=== PATIENT | male | born 1990 | race Caucasian/White ===

== ENCOUNTER → 2018-07-23 13:30 | Outpatient (REF) | payer BC, SELFPAY ==
[2018-07-25 09:40] LABS: Acrosom Defect 27.5 %; Appearance Normal; Container Type 50 mL Conical; Double Forms 3.5 %; Germ Cells/mL 1.03 x10(6) (<4.00); Grade 2.5 (>=2.5); Motile/Ejaculate 8.5 x10(6) (>=9.0); Motile/mL 6.5 x10(6) (>=6.0); Motility 41 % (>=40); Semen Volume 1.3 mL (>=1.5); Sperm/mL 15.9 x10(6) (>=15.0); Study Type Semen; WBC/mL 0.24 x10(6) (<1.00)
== END ==
LOC: NCHCN 13:30
PROVIDERS: PCP Family Medicine; Visit Provider Family Medicine
DX: Z31.69 Encounter for other general counseling and advice on procreation (principal)
CPT/HCPCS: 89240; 89310

== ENCOUNTER 2019-12-08 18:04 | Outpatient (REF) | payer BC, SELFPAY ==
[2019-12-08 18:58] LABS: BUN 11 mg/dL (7-18); CREATININE 0.87 mg/dL (0.70-1.30); Calcium 9.4 mg/dL (8.5-10.1); Chloride 104 mmol/L (98-107); Glucose 109 mg/dL (74-106); Sodium 145 mmol/L (136-145)
== END 2019-12-08 18:24 ==
LOC: NCHCN 18:04
PROVIDERS: PCP Family Medicine; Visit Provider Family Medicine
DX: I10 Essential (primary) hypertension (principal)
CPT/HCPCS: 80048

== ENCOUNTER 2020-02-17 02:13 | Outpatient (CLI) | payer BC, SELFPAY ==
--- NOTE | 2020-02-17 07:32 | DI.US_ITS ---
APPROVED REPORT EXAM: Comprehensive 2D, Doppler, and color-flow Echocardiogram Patient Location: Out-Patient Bench Inspector: Petra Diaz RDCS (AE) Indications: Abnormal EKG LVH Conclusion Left Ventricle : The left ventricle is normal size. The left ventricular systolic function is normal. The left ventricular ejection fraction is within the normal range. There is normal left ventricular wall thickness. There is normal LV segmental wall motion. The left ventricular diastolic function is normal. LVEF is 65-70%. Right Ventricle : The right ventricle is normal size. The right ventricular systolic function is norm al. Atria : The left atrium size is normal. The right atrium size is normal. Valves: There are no hemodynamically significant valvular lesions Great Vessels : IVC is normal in size and collapses >50% with inspiration. The RVSP is 21 mmHg. There is no prior echocardiogram available for comparison. Wall motion Left Ventricle The left ventricle is normal size. The left ventricular systolic function is normal. The left ventric ular ejection fraction is within the normal range. There is normal left ventricular wall thickness. T here is normal LV segmental wall motion. The left ventricular diastolic function is normal. There is no ventricular septal defect visualized. LVEF is 65-70%. Right Ventricle The right ventricle is normal size. The right ventricular systolic function is normal. Atria The left atrium size is normal. The right atrium size is normal. Aortic Valve Aortic valve is trileaflet. There is no aortic valvular stenosis. No aortic regurgitation is present. Mitral Valve The mitral valve is normal in structure. No evidence of mitral valve stenosis. Trace mitral regurgita tion. Tricuspid Valve The tricuspid valve is normal in structure. There is no tricuspid valve stenosis. Trace tricuspid reg urgitation. Pulmonic Valve The pulmonary valve is normal in structure. There is no pulmonic valvular stenosis. There is no pulmo romana valvular regurgitation. Great Vessels The aortic root is normal in size. The ascending aorta is normal in size. Aortic arch is normal in ca liber. IVC is normal in size and collapses >50% with inspiration. The RVSP is 21 mmHg. Pericardium There is no pericardial effusion. There is no pleural effusion. 2D Dimensions IVSD d PLAX 0.87 cm M: 0.6-1.2 LV Vol A2C d MOD 85.2 mL LVPW d PLAX 0.84 cm M: 0.6 - 1.2 LV Vol A4C d MOD 76.8 mL LVID d PLAX 4.52 cm M: 4.2 - 5.8 LA vol/ BSA A2C s A-L 19.2 mL/m2 LVDs 2.95 cm M: 2.5 - 4.0 LA vol/ BSA A4C s A-L 27.2 mL/m2 Ao Root d 2.68 cm M: 3.1 - 3.7 LA Vol/ BSA Biplane s A-L 24.2 mL/m2 RA Area A4C 15.17 cm2 LA Area A4C s MOD 16.15 cm2 RA Vol/ BSA A4C s A-L 27.4 mL/m2 LA Area A2C s MOD 14.32 cm2 Ao Asc Diam d 2.89 cm M: 2.6 - 3.4 LV EF A4C MOD 57.5 % LV EF Teichholz 63.9 % LV EF A2C MOD 52.5 % LVEF (Draper's) 53.35 % M: 52 - 72 LV EF Biplane MOD 53.4 % LV Volume 66.47 mL M: 62 - 150 LV Volume Index 38.64 mL/m2 M: 34 - 74 LV Vol Biplane MOD 84.2 mL FS 34.60 % M-Mode TAPSE 2.08 cm (M/F) <1.7 LV Diastology MV E' medial 0.152 (>0.07 m/s) E/A Ratio 1.4 LV E/e MED 5.10 (<14) MV E Vmax 0.77 (0.4-1.3 m/s) MV E' lateral 0.161 (>0.1 m/s) MV A Vmax 0.55 (0.4-1.3 m/s) LV E/e LAT 4.75 (<14) MV E/A Ratio 1.32 MV E/E' medial 5.10 MV E/E' lateral 4.79 Aortic Valve LVOT Area 2.54 cm2 AoV Area Vmax 2.41 cm2 LVOT Vmax 1.23 m/s AoV Area/ BSA (Vmax) 1.40 cm2/m2 LVOT Mean Doni. 0.83 m/s ARABELLA Mean Doni. 2.23 cm2 LVOT Peak Grad 6.0 mmHg ARABELLA Mean Doni. Index 1.29 cm2/m2 LVOT Mean Grad 3.2 mmHg LVOT VTI 0.226 m LVOT Diam s 1.75 cm (M/F) 1.5-2.5 AoV Vmax 1.30 (0.5-1.3 m/s) Velocity Ratio 0.94 AoV Mean Doni. 0.94 m/s AoV Peak Grad 6.7 mmHg LVOT SV 57.49 mL AoV Mean Grad 3.8 (<5 mmHg) AoV VTI 0.218 (0.18-0.25 m) AoV Area VTI 2.63 (2.5-4.5 cm2) AoV Area/ BSA (VTI) 1.53 cm/m2 Mitral Valve MV DT 227 (160-240 msec) MV PHT 66 msec MV Area PHT 3.35 cm2 Pulmonary Valve PV Vmax 0.92 (0.5-1.5 m/s) RVOT Peak Gr. 2.88 mmHg PV Peak Grad 3.4 mmHg RVOT Mean Gr. 1.60 mmHg PV Mean Grad 1.9 mmHg RVOT VTI 0.172 m PV VTI 0.194 m RVOT Vmax 0.85 m/s Tricuspid Valve TR Peak Grad 18.8 mmHg TR Vmax 2.17 m/s RA Pressure 3.00 mmHg RVSP (TR) 21.8 mmHg
== END 2020-02-17 02:33 ==
PROVIDERS: PCP Family Medicine; Visit Provider Family Medicine
DX: R94.31 Abnormal electrocardiogram [ECG] [EKG] (principal); I10 Essential (primary) hypertension
CPT/HCPCS: 93306

== ENCOUNTER 2020-03-02 09:47 | Outpatient (CLI) | payer BC, SELFPAY ==
[2020-03-07 08:20] LABS: COVID-19 RT-PCR Result Not Detected (NotDetected)
== END 2020-03-02 10:07 ==
LOC: NCHCN 09:56 → LBO 10:11
PROVIDERS: PCP Family Medicine; Visit Provider Family Medicine
DX: R05 Cough (principal)
CPT/HCPCS: U0003

== ENCOUNTER 2021-02-01 12:12 | Outpatient (REF) | payer BC, SELFPAY ==
[2021-02-02 09:44] LABS: Hepatitis C Ab w Rflx HCV PCR Negative (Negative)
== END 2021-02-01 12:13 | disposition home or self-care (01) ==
LOC: NCHCN 12:12
PROVIDERS: PCP Family Medicine; Visit Provider Family Medicine
DX: I10 Essential (primary) hypertension (principal); Z11.59 Encounter for screening for other viral diseases; Z00.00 Encounter for general adult medical examination without abnormal findings
CPT/HCPCS: 86803; 82565

== ENCOUNTER 2022-10-17 18:41 | Outpatient (REF) | payer OTHER, SELFPAY ==
[2022-10-17 16:04] LABS: CREATININE 0.8 mg/dL (0.70-1.30); Calculated LDL 119 mg/dL (<100); Cholesterol 188 mg/dL (<200); Estimated GFR 119.84 (mL/min/1.73m2); HDL Cholesterol 58 mg/dL (40-60); Triglyceride 57 mg/dL (<150)
== END 2022-10-17 18:42 | disposition home or self-care (01) ==
LOC: NCHCN 18:41
PROVIDERS: PCP Family Medicine; Visit Provider Family Medicine
DX: Z00.00 Encounter for general adult medical examination without abnormal findings (principal); Z13.220 Encounter for screening for lipoid disorders
CPT/HCPCS: 80061; 82565

== ENCOUNTER 2023-11-22 20:33 | Outpatient (REF) | payer OTHER, SELFPAY ==
[2023-11-22 16:44] LABS: Anion Gap 7.5 mmol/L (3-11); BUN 13 mg/dL (7-18); CO2 32.5 mmol/L (21.0-32.0); CREATININE 0.9 mg/dL (0.70-1.30); Calcium 9.7 mg/dL (8.5-10.1); Chloride 100 mmol/L (98-107); Estimated GFR 114.93 (mL/min/1.73m2); Glucose 97 mg/dL (74-106); Potassium 4.3 mmol/L (3.5-5.1); Sodium 140 mmol/L (136-145); TSH 1.11 uIU/mL (0.36-3.74)
== END 2023-11-22 20:34 | disposition home or self-care (01) ==
LOC: NCHCN 20:33
PROVIDERS: PCP Family Medicine; Visit Provider Family Medicine
DX: I10 Essential (primary) hypertension (principal)
CPT/HCPCS: 80048; 84443

== ENCOUNTER 2024-10-27 18:07 | Outpatient (REF) | payer OTHER, SELFPAY ==
--- OUTSIDE RECORDS SUMMARY | 2024-10-27 18:09 | XMS_ITS | Encounter Summary ---
Author Organization [facility] Address [address] [place] [address] Care Team Providers Care Television Repairman Name Role Phone Unknown, Provider Primary Care Provider Unava ilable Encounter Details Date Type Department Care Team (Late st Contact Info) Description 02/01/2021 Lab Requisition [facility] Pathology & Laboratory Medicine - [facility] [address] [place] [address] Outr Resulting Lab, Provider Social History Tobacco Use Types Packs/Day Years Used Date Smoking Tobacco: Never Assessed Sex and Gender Information Value Date Recorded Sex Assigned at Not on file Legal Sex Male 18:38 EST Gender Identity Not on file Sexual Orientation Not on file documented as of this encounter Plan of Treatment Not on file documented as of this encounter Procedures Procedure Name Priority Date/Time Associated Diagnosis Comments HEPATITIS C AB W REFLEX TO HCV RNA BY PCR Routine 02/01/2021 12:10 EST documented in this encounter Results * HEPATITIS C AB W REFLEX TO HCV RNA BY PCR (02/01/2021 12:10 EST) Hep C Antibody Negative Negative 02/02/2021 9:40 EST [facility] Blood VENOUS BLOOD / Unknown 02/01/2021 12:10 EST 02/01/2021 21:34 EST us Provider Outr Resulting Lab CHEMISTRY & BLOOD GA S ORDERABLES Final Result [facility] [address] [place] [address] documented in this encounter Visit Diagnoses Not on filedocumented in this encounter Care Teams Television Repairman Relationship Specialty Start Date End Date Unknown, Provider, PCP - General 10/12/15 documented as of this encounter
--- OUTSIDE RECORDS SUMMARY | 2024-10-27 18:09 | XMS_ITS | Referral Summary ---
Author Organization [facility] Address [address] [place] [address] Care Team Providers Care Milk Drier Name Role Phone Unknown, Provider MD Primary Care Provider Unava ilable Social History Tobacco Use Types Packs/Day Years Used Date Smoking Tobacco: Never Assessed Sex and Gender Information Value Date Recorded Sex Assigned at Not on file Legal Sex Male 18:38 EST Gender Identity Not on file Sexual Orientation Not on file Plan of Treatment Not on file Procedures Procedure Name Priority Date/Time Associated Diagnosis Comments HEPATITIS C AB W REFLEX TO HCV RNA BY PCR Routine 02/01/2021 12:10 EST from Last 3 Months or Most Recently Relevant to Health Maintenance Results * HEPATITIS C AB W REFLEX TO HCV RNA BY PCR (02/01/2021 12:10 EST) Hep C Antibody Negative Negative 02/02/2021 9:[address] [facility] Blood VENOUS BLOOD / Unknown 02/01/2021 12:10 EST 02/01/2021 21:34 EST us Provider Outr Resulting Lab CHEMISTRY & BLOOD GA S ORDERABLES Final Result [facility] [address] [place] [address] from Last 3 Months or Most Recently Relevant to Health Maintenance Care Teams Milk Drier Relationship Specialty Start Date End Date Unknown, Provider, PCP - General 10/12/15
--- OUTSIDE RECORDS SUMMARY | 2024-10-27 18:09 | XMS_ITS | Encounter Summary ---
Author Organization [facility] Address [address] [place] [address] Care Team Providers Care Nicking Machine Operator Name Role Phone Unknown, Provider Primary Care Provider Unava ilable Encounter Details Date Type Department Care Team (Late st Contact Info) Description 03/02/2020 Lab Requisition [facility] Pathology & Laboratory Medicine - [facility] [address] [place] [address] Galen Mckinley MD [address] [place] [phone] Encounter for other general examination Social History Tobacco Use Types Packs/Day Years [...] Procedure Name Priority Date/Time Associated Diagnosis Comments COVID-19 [place] Today 03/02/2020 10:19 EDT Encounter for other general examination documented in this encounter Results * COVID-19 [place] (03/02/2020 10:19 EDT) COVID-19 [place] Specimen Source Nasopharynx 03/05/2020 8:51 EDT [facility] [employer] COVID-19 [place] Result Undetected Undetected 03/05/2020 8:51 EDT [facility] Comment: SARS-CoV-2 RNA is not detected. ADDITIONAL INFORMATION Testing was performed using the violet SARS-CoV-2 assay ([employer] on the violet 6800 System. Fact sheets for this Emergency Use Authorization (EUA) assay can be found at the following links: For Healthcare Providers: https://www.fda.gov/media/784089/download For Patients: https://www.fda.gov/media/881362/download Test Performed by: [facility] [address] [place] [id number] [employer]dered Sugar Pulverizer Operator: Andrew Guerrier M.D. Ph.D.; CLIA# [id number] Swab ENTIRE NASOPHARYNX / Unknown 03/02/2020 10:19 EDT 03/02/2020 15:21 EDT Galen Mckinley MD MICROBIOLOGY - GENERAL STEFAN FORMAN Final Result [facility] [address] [place] [address] documented in this encounter Visit Diagnoses Diagnosis Encounter for other general examination documented in this encounter Care Teams Nicking Machine Operator Relationship Specialty Start Date End Date Unknown, Provider, PCP - General 10/12/15 documented as of this encounter
--- OUTSIDE RECORDS SUMMARY | 2024-10-27 18:09 | XMS_ITS | Clinical Summary ---
Author Organization [facility] Address [address] [place] [id number] Care Team Providers Care Salvage Repairer Name Role Phone Unknown, Provider MD Primary Care Provider Unava ilable Social History Tobacco Use Types Packs/Day Years Used Date Smoking Tobacco: Never Assessed Sex and Gender Information Value Date Recorded Sex Assigned at Not on file Legal Sex Male 18:38 EST Gender Identity Not on file Sexual Orientation Not on file Plan of Treatment Health Maintenance Due Date Last Done Comments Hepatitis B Vaccine (1 of - 19+ 3-dose series) 12/06 COVID-19 Vaccine ( season) 2024 Hepatitis C Screen Completed 02/01/2021 Procedures Procedure Name Priority Date/Time Associated Diagnosis Comments HEPATITIS C AB W REFLEX TO HCV RNA BY PCR Routine 02/01/2021 12:10 EST from Last 3 Months or Most Recently Relevant to Health Maintenance Results * HEPATITIS C AB W REFLEX TO HCV RNA BY PCR (02/01/2021 12:10 EST) Hep C Antibody Negative Negative 02/02/2021 9:40 EST [facility] Blood VENOUS BLOOD / Unknown 02/01/2021 12:10 EST 02/01/2021 21:34 EST us Provider Outr Resulting Lab CHEMISTRY & BLOOD GA S ORDERABLES Final Result [facility] [address] [place] [address] from Last 3 Months or Most Recently Relevant to Health Maintenance Care Teams Salvage Repairer Relationship Specialty Start Date End Date Unknown, Provider, PCP - General 10/12/15
--- OUTSIDE RECORDS SUMMARY | 2024-10-27 18:09 | XMS_ITS | Encounter Summary ---
Author Organization [facility] Address [address] [place] [address] Care Team Providers Care Lunch Counter Manager Name Role Phone Unavailable Primary Care Provider Unavailabl e Encounter Details Date Type Department Care Team (Late st Contact Info) Description 08/15/2006 Office Visit [facility] [address] [place], [place] [address] Adilson Lara PA-C [address] [facility] [place] [phone] Social History Tobacco Use Types Packs/Day Years Used Date Smoking Tobacco: Never Assessed Sex and Gender Information Value Date Recorded Sex Assigned at Not on file Legal Sex Male 18:38 EST Gender Identity Not on file Sexual Orientation Not on file documented as of this encounter Progress Notes * Adilson Lara PA - 01/26/2010 0733 EST Department - Physician Summary Registration Date/Time: 08/15/2006 19:27 Time Seen: 1946. Arrived- By ambulance. Historian - patient. HISTORY OF PRESENT ILLNESS Chief Complaint: BACK INJURY and BACK PAIN. Onset was just prior to arrival and it is still present(persistent).It is described as being moderate in degree and in the area of the right mid lumbar spine and radiating to the right foot. The quality is noted to be sharp. Associated symptoms - Mild sensory loss involving the right foot and left foot. No bladder dysfunction, bowel dysfunction or motor loss. Additional history - Did not hit head, no LOC. Patient notes an injury. Mechanism of injury (playing soccer. Came down on R knee, back flexed, felt pop. Able to play last 20 minutes of game, bearing weight on legs with no limitations. Pain reallystarted after game). Patient also notes injury to the neck. (left lateral neck with pain.). Patient has not had similar symptoms previously. Not recently seen/assessed. REVIEW OF SYSTEMS The patient has had a mild frontal headache. He has had mild nausea. No fever, chills, difficulty with urination, difficulty breathing or chest pain. No abdominal pain, vomiting, dizziness, fainting episodes or seizure. No numbness or weakness. PAST HISTORY Negative. Medications: None. Allergies: No known drug allergies. ADDITIONAL NOTES The nursing notes have been reviewed. PHYSICAL EXAM Appearance: Alert. No acutedistress. Vital Signs: Normal - Eyes: Pupils equal, round and reactive to light. Neck: Normal inspection. No muscle spasm in the neck. Mild vertebral tenderness: C3. Soft tissue tenderness Left lateral neck. CVS: Heart sounds normal. Pulses normal. Respiratory: No respiratory distress. Breath sounds normal. Abdomen: Abdomen soft and nontender. No organomegaly. Back: Vertebral point tenderness over the mid lumbar spine. Moderate soft tissue tenderness in the right mid lumbar area. Normal inspection. Painless ROM. No CVA tenderness. Skin: Normal skin color and turgor. Skin warm and dry. No rash. Extremities: Extremities exhibit normal ROM. Extremities nontender. Neuro: Oriented X 3. Mood/affect normal. No motor deficit. No sensory deficit. Straight leg raising: positive on the right at 30 degrees and negative on the left. Reflexes normal. LABS, X-RAYS, AND EKG X-Rays: X-rays are normal and reveal no acute disease. C-spine series negative. LS spine series negative. The X-rays were interpreted by the radiologist. PROGRESS AND PROCEDURES ED Attending on duty and available for supervision (Dr Castrejon). Disposition: Discharged home in good condition (22:05 ). CLINICAL IMPRESSION Acute back pain: lumbar strain with sciatica . Acute cervical strain . INSTRUCTIONS Warnings: GENERAL WARNINGS: Return or contact your physician immediately if your condition worsens or changesunexpectedly, if not improving as expected, or if other problems arise. Numbness or tingling of legs or arms, bowel or bladder problems. OTC Medications: Acetaminophen (available over the counter): take according to label instructions. Motrin (available over the counter): take according to label instructions. Understanding of the discharge instructions verbalized by patient. (Electronically signed by EDITH Ponce 08/15/2006 22:10) Co-signature 08/15/2006 22:10 signed by Adilson SHARMA - 08/15/2006 22:10) Department - Nursing Summary Registration Date/Time: 08/15/2006 19:27 TRIAGE Initial Assessment Triage time 19:42 Aug 15 2006 . Acuity: LEVEL 4. BP: 135/84. HR: 95. RR: 18. Temp: 37.4. O2 saturation: 100% room air. --1946 Kimmy Oneal R.N. Medications None. --1946 Kimmy Oneal R.N. Allergies No known drug allergies. --1946 Kimmy Oneal R.N. History Chief Complaint: SPORTS INJURY. Location of injuries- head and mid back. This occurred today. ( Pt arrives via EMS, pt playin soccer game, was goalie and went to block a goal,came down wrong played restof the game, pt c/o neck and back pain). The patient has had a headache and nausea. No loss of consciousness. PAST HX: Negative. Arrived by EMS and accompanied by ( pt arrives with teacher, pt's father on the way from [place]). Historian: patient. --1946 Kimmy Oneal R.N. PHYSICAL ASSESSMENT Appears in no acute distress. Oriented X 3. Respirations not labored. Abdomen soft. Extremities exhibit normal ROM. Skin is warm and dry. --1945 Kimmy Oneal R.N. NURSING PROGRESS NOTES Progress ( Pt rolled off EDITH QUIÑONES to check pts neck/back, pt awaiting xray). --2012 Kimmy Oneal R.N. Late entry -Xrays completed, awaiting results. --2146 Kimmy Oneal R.N. ( Father in room, pt OOB ambulating without difficulties). --2214 Kimmy Oneal R.N. DISPOSITION / DISCHARGE Patient reports pain level on departure as 0/10. Condition at departure: stable. No learning barriers present. Discharge instructions reviewed with the patient and parent. Reviewed warnings. Reviewedmedication. Treatments reviewed. Reviewed referrals. Patient and parent verbalized understanding. Written instructions provided in Faroese. The patient was discharged home and accompanied by parent. The patient left the Emergency Department ambulatory and via private vehicle. Parent driving. --[id number] Robledo R.N. Locked/Released at 08/16/2006 6:02 by Madyson Johnson R.N. documented in this encounter Plan of Treatment Not on file documented as of this encounter Visit Diagnoses Not on filedocumented in this encounter
--- OUTSIDE RECORDS SUMMARY | 2024-10-27 18:09 | XMS_ITS | Encounter Summary ---
Author Organization [facility] Address [address] [place] [address] Care Team Providers Care Director Of Slot Operations Name Role Phone Unavailable Primary Care Provider Unavailabl e Encounter Details Date Type Department Care Team (Latest Contact Info) Description 08/15/2006 19:51 EDT Hospital Encounter [facility] Emergency Department - [facility] [address] [place], [place] [address] Emergency, Default, MD Discharge Disposition: Home or Self Care Social History Tobacco Use Types Packs/Day Years Used Date Smoking Tobacco: Never Assessed Sex and Gender Information Value Date Recorded Sex Assigned at Not on file Legal Sex Male 18:38 EST Gender Identity Not on file Sexual Orientation Not on file documented as of this encounter Discharge Disposition Disposition Code Departure Means Destination Home or Self Care documented in this encounter Plan of Treatment Not on file documented as of this encounter Procedures Procedure Name Priority Date/Time Associated Diagnosis Comments L SPINE 2-3 VIEWS 08/15/2006 20: 39 EDT CERVICAL SPINE 2-3 VIEWS 08/15/2006 20:38 EDT documented in this encounter Results * L SPINE 2-3 VIEWS (08/15/2006 20:39 EDT) Anatomical Region Laterality Modality Other 08/15/2006 20:3 9 EDT Narrative 06/11/2009 2:51 EDT FALL L1-L2 C3 R/O FRACTURE LUMBAR SPINE 2 VIEWS, CERVICAL SPINE 3 VIEWS HISTORY: Fall L1-2 and C3 pain. ??Rule out fracture. LUMBAR SPINE: AP and lateral views of the lumbar spine were obtained. There is no fracture. ??The alignment is anatomic. There is no osseous abnormality. CERVICAL SPINE: The alignment of the cervical spine is anatomic. ??The C7-T1 junction is normal. There is no fracture or dislocation. ??The odontoid has a normal appearance. The prevertebral soft tissues are normal. IMPRESSION: Normal x-rays of the cervical spine. D: ??08/15/06 T: ??08/19/06 /jv Procedure Note Leonor London MD - 06/11/2009 FALL L1-L2 C3 R/O FRACTURE LUMBAR SPINE 2 VIEWS, CERVICAL SPINE 3 VIEWS HISTORY: Fall L1-2 and C3 pain. Rule out fracture. LUMBAR SPINE: AP and lateral views of the lumbar spine were obtained. There is no fracture. The alignment is anatomic. There is no osseous abnormality. CERVICAL SPINE: The alignment of the cervical spine is anatomic. The C7-T1 junction is normal. There is no fracture or dislocation. The odontoid has a normal appearance. The prevertebral soft tissues are normal. IMPRESSION: Normal x-rays of the cervical spine. /jv us Adilson Lara PA-C [facility] NG ORDERABLES Final Result * CERVICAL SPINE 2-3 VIEWS (08/15/2006 20:38 EDT) Anatomical Region Laterality Modality Other 08/15/2006 20:3 8 EDT Narrative 06/11/2009 2:51 EDT FALL L1-L2 C3 R/O FRACTURE LUMBAR SPINE 2 VIEWS, CERVICAL SPINE 3 VIEWS HISTORY: Fall L1-2 and C3 pain. ??Rule out fracture. LUMBAR SPINE: AP and lateral views of the lumbar spine were obtained. There is no fracture. ??The alignment is anatomic. There is no osseous abnormality. CERVICAL SPINE: The alignment of the cervical spine is anatomic. ??The C7-T1 junction is normal. There is no fracture or dislocation. ??The odontoid has a normal appearance. The prevertebral soft tissues are normal. IMPRESSION: Normal x-rays of the cervical spine. D: ??08/15/06 T: ??08/19/06 /jv Procedure Note Leonor London MD - 06/11/2009 FALL L1-L2 C3 R/O FRACTURE LUMBAR SPINE 2 VIEWS, CERVICAL SPINE 3 VIEWS HISTORY: Fall L1-2 and C3 pain. Rule out fracture. LUMBAR SPINE: AP and lateral views of the lumbar spine were obtained. There is no fracture. The alignment is anatomic. There is no osseous abnormality. CERVICAL SPINE: The alignment of the cervical spine is anatomic. The C7-T1 junction is normal. There is no fracture or dislocation. The odontoid has a normal appearance. The prevertebral soft tissues are normal. IMPRESSION: Normal x-rays of the cervical spine. /kirti us Adilson Lara PA-C [facility] NG ORDERABLES Final Result documented in this encounter Visit Diagnoses Not on filedocumented in this encounter
[2024-10-27 19:58] LABS: Anion Gap 8.3 mmol/L (3-11); BUN 14 mg/dL (7-18); CO2 29.7 mmol/L (21.0-32.0); CREATININE 1.1 mg/dL (0.70-1.30); Calcium 9.1 mg/dL (8.5-10.1); Chloride 104 mmol/L (98-107); Estimated GFR 89.78 (mL/min/1.73m2); Glucose 93 mg/dL (74-106); Potassium 4.5 mmol/L (3.5-5.1); Sodium 142 mmol/L (136-145)
== END 2024-10-27 18:08 | disposition home or self-care (01) ==
LOC: NCHCN 18:07
PROVIDERS: PCP Family Medicine; Visit Provider Physician Assistant
DX: I10 Essential (primary) hypertension (principal)
CPT/HCPCS: 80048

== ENCOUNTER 2025-01-12 11:48 | Outpatient (CLI) | payer OTHER, SELFPAY ==
--- NOTE | 2025-01-12 | DI.RAD_ITS ---
Exam(s) XR SHOULDER RT COMPLETE 2+V EXAM: XR SHOULDER RT COMPLETE 2+V CLINICAL HISTORY: RT SHOULDER PAIN, M25.511. TECHNIQUE: 2D digital imaging was performed. Five views. COMPARISON: No exams were available for comparison FINDINGS: BONES: No acute fracture is present. No bony destructive lesion is seen. JOINTS: No dislocation present. There are no significant degenerative changes. SOFT TISSUE: Normal. IMPRESSION: Unremarkable radiographs of the right shoulder. DATA REPOSITORY: RADIATION DOSE DELIVERED:
== END 2025-01-12 12:08 ==
LOC: DI 11:49
PROVIDERS: PCP Family Medicine; Visit Provider Physician Assistant
DX: M25.511 Pain in right shoulder (principal)
CPT/HCPCS: 73030